=== PATIENT | female | born 1985 | race Caucasian/White ===

== ENCOUNTER 2017-05-04 15:19 | Emergency (ER) | payer SELFPAY ==
[~2017-05-04] VITALS: Ht 160 cm; Wt 59.0 kg
[~2017-05-04 15:19] MED LIST: BENT20TA PO; MONOTAB PO; NAPR-576 PO; ZOFR4TAB3 SL
[2017-05-04 15:20] VITALS: BP 178/102; PULSE 82; RESP 18; TEMP 99; O2SAT 100
--- NOTE | 2017-05-04 16:19 | RADRPT ---
EXAM DATE/TIME: 05/04/2017 15:41 [place] COMPARISON: No previous studies available for comparison. INDICATIONS : Chest pain. MEDICAL HISTORY : upper respiratory infection SURGICAL HISTORY : None. ENCOUNTER: Initial ACUITY: 2 days PAIN SCORE: 7/10 LOCATION: Bilateral chest FINDINGS: PA and lateral views of the chest demonstrate the lungs to be symmetrically aerated without evidence of mass, infiltrate or effusion. The cardiomediastinal contours are unremarkable. Osseous structure s are intact. CONCLUSION: No acute cardiopulmonary disease. Howard Ortiz MD on May 04, 2017 at 16:18 Board Certified Radiologist. This report was verified electronically.
[2017-05-04 17:07] LABS: AUTOMATED NEUTROPHIL # 4.4 TH/MM3 (1.8-7.7); BASOPHIL % 0.6 % (0.0-2.0); EOSINOPHIL # 0.1 TH/MM3 (0-0.4); EOSINOPHIL % 1.8 % (0.0-4.0); HEMATOCRIT 36.5 % (35.0-46.0); HEMOGLOBIN 12.3 GM/DL (11.6-15.3); LYMPH % 26.2 % (9.0-44.0); LYMPHOCYTE # 1.8 TH/MM3 (1.0-4.8); MEAN CELL VOLUME 90.1 FL (80.0-100.0); MEAN CORPUSCULAR HEMOGLOBIN 30.4 PG (27.0-34.0); MEAN CORPUSCULAR HGB CONC 33.8 % (32.0-36.0); MEAN PLATELET VOLUME 8.5 FL (7.0-11.0); MONO % 7.5 % (0.0-8.0); MONOCYTE # 0.5 TH/MM3 (0-0.9); NEUT % 63.9 % (16.0-70.0); PLATELET COUNT 303 TH/MM3 (150-450); RED BLOOD COUNT 4.05 MIL/MM3 (4.00-5.30); RED CELL DISTRIBUTION WIDTH 13.4 % (11.6-17.2); WHITE BLOOD COUNT 6.9 TH/MM3 (4.0-11.0)
[2017-05-04 17:21] LABS: BICARBONATE 26.3 MEQ/L (21.0-32.0); BLOOD UREA NITROGEN 10 MG/DL (7-18); CALCIUM 8.6 MG/DL (8.5-10.1); CHLORIDE 105 MEQ/L (98-107); CREATININE 0.76 MG/DL (0.50-1.00); GLOMERULAR FILTRATION RATE 89 ML/MIN (>89); GLUCOSE,RANDOM 92 MG/DL (74-106); MAGNESIUM 2.3 MG/DL (1.5-2.5); SODIUM (NA) 138 MEQ/L (136-145)
[2017-05-04 17:25] LABS: TROPONIN I LESS THAN 0.02 NG/ML (0.02-0.05)
[2017-05-04] MEDS ORDERED: BUTA1CAP PO (18:02)
[2017-05-04] MEDS ORDERED: CYCL10TA PO (18:02)
--- NOTE | 2017-05-04 18:05 | PD ---
HPI Chief Complaint: Respiratory Symptoms Time Seen by Provider: 17:21 Travel History International Travel<30 days: No Contact w/Intl Traveler<30days: No Traveled to known affect area: No History of Present Illness HPI patient has been recovering from uri over the past 3 weeks, most of her symptoms are improved or resolved but she continues to have dry cough and chest wall pain....chest pain is sharp, 5/10, also hurts with touching... patient states that her chest hurts with movement, and with coughing. denies any aggravating factors...denies assoc factors such as fever/abdpain/back pain/rash/ n/v/d/ PFSH Past Medical History Asthma: Yes ( A CHILD) Diminished Hearing: No GERD: Yes Musculoskeletal: Yes (PINS IN RIGHT HIP AND RIGHT KNEE) Reproductive: Yes (PCOS) Immunizations Current: No ?: Not LMP: 1 week ago : 0 Para: 0 Miscarriage: 0 : 0 Past Surgical History Abdominal Surgery: Yes (ING HERNIA X2 CELINA UMBILICL HERNIA) Social History Alcohol Use: Yes (SOCIALLY ) Tobacco Use: No Substance Use: No Allergies-Medications (Allergen,Severity, Reaction): Coded Allergies: tramadol (Unverified Allergy, Severe, 10/27/16) THROAT SWELLS Reported Meds & Prescriptions Reported Meds & Active Scripts Active Bentyl (Dicyclomine HCl) 20 Mg Tab 20 Mg PO QID PRN Naproxen 500 Mg Tab 500 Mg PO BID Zofran ODT (Ondansetron HCl) 4 Mg Tab 4 Mg SL Q6H PRN FOR NAUSEA/VOMITING Reported Mononessa (Norgestimate-Ethinyl Estradiol) Tab 1 Tab PO DAILY Review of Systems General / Constitutional: No: Fever Eyes: No: Visual changes HENT: No: Headaches Cardiovascular: Positive: Chest Pain or Discomfort Respiratory: No: Shortness of Breath Gastrointestinal: No: Abdominal Pain Genitourinary: No: Dysuria Musculoskeletal: No: Pain Skin: No Rash Neurologic: No: Weakness Psychiatric: No: Depression Endocrine: No: Polydipsia Hematologic/Lymphatic: No: Easy Bruising Physical Exam Narrative GENERAL: SKIN: Warm and dry. HEAD: Atraumatic. Normocephalic. EYES: Pupils equal and round. No scleral icterus. No injection or drainage. ENT: No nasal bleeding or discharge. Mucous membranes pink and moist. NECK: Trachea midline. No JVD. CARDIOVASCULAR: Regular rate and rhythm. RESPIRATORY: No accessory muscle use. Clear to auscultation. Breath sounds equal bilaterally. chest pain is fully reproducible with palpation GASTROINTESTINAL: Abdomen soft, non-tender, nondistended. MUSCULOSKELETAL: Extremities without clubbing, cyanosis, or edema. No obvious deformities. NEUROLOGICAL: Awake and alert. No obvious cranial nerve deficits. Motor grossly within normal limits. Five out of 5 muscle strength in the arms and legs. Normal speech. PSYCHIATRIC: Appropriate mood and affect; insight and judgment normal. Data Data Last Documented VS Vital Signs Date Time Temp Pulse Resp B/P (MAP) Pulse Ox O2 Delivery O2 Flow Rate FiO2 05/04/17 15:20 99.0 82 18 178/102 (127) 100 Room Air Orders Orders Electrocardiogram (05/04/17 15:24) Basic Metabolic Panel (Bmp) (05/04/17 15:24) Ckmb (Isoenzyme) Profile (05/04/17 15:24) Complete Blood Count With Diff (05/04/17 15:24) Magnesium (Mg) (05/04/17 15:24) Troponin I (05/04/17 15:24) Chest, Pa & Lat (05/04/17 15:24) CKMB (05/04/17 16:09) CKMB% (05/04/17 16:09) Labs Laboratory Tests Test 05/04/17 16:09 White Blood Count 6.9 TH/MM3 Red Blood Count 4.05 MIL/MM3 Hemoglobin 12.3 GM/DL Hematocrit 36.5 % Mean Corpuscular Volume 90.1 FL Mean Corpuscular Hemoglobin 30.4 PG Mean Corpuscular Hemoglobin Concent 33.8 % Red Cell Distribution Width 13.4 % Platelet Count 303 TH/MM3 Mean Platelet Volume 8.5 FL Neutrophils (%) (Auto) 63.9 % Lymphocytes (%) (Auto) 26.2 % Monocytes (%) (Auto) 7.5 % Eosinophils (%) (Auto) 1.8 % Basophils (%) (Auto) 0.6 % Neutrophils # (Auto) 4.4 TH/MM3 Lymphocytes # (Auto) 1.8 TH/MM3 Monocytes # (Auto) 0.5 TH/MM3 Eosinophils # (Auto) 0.1 TH/MM3 Basophils # (Auto) 0.0 TH/MM3 CBC Comment DIFF FINAL Differential Comment Blood Urea Nitrogen 10 MG/DL Creatinine 0.76 MG/DL Random Glucose 92 MG/DL Calcium Level 8.6 MG/DL Magnesium Level 2.3 MG/DL Sodium Level 138 MEQ/L Potassium Level 3.7 MEQ/L Chloride Level 105 MEQ/L Carbon Dioxide Level 26.3 MEQ/L Anion Gap 7 MEQ/L Estimat Glomerular Filtration Rate 89 ML/MIN Total Creatine Kinase 105 U/L Creatine Kinase MB 0.7 NG/ML Troponin I LESS THAN 0.02 NG/ML MDM Medical Decision Making Medical Screen Exam Complete: Yes Medical Record Reviewed: Yes Interpretation(s) nsr, no stemi pattern, normal intervals Differential Diagnosis pna v ptx v rib fx v chest wall pain Narrative Course no leukocytosis, no anemia, normal electrolytes. normal lipase/troponin, normal electrolytes Diagnosis Primary Impression: Chest wall pain Patient Instructions: Chest Wall Pain (GEN), General Instructions Scripts [id number] (Fioricet) 50-300-40 Mg Cap 1-2 CAP PO Q6H Y for PAIN SCALE 5 TO 7, #15 CAP 0 Refills Prov: Quan Viveros MD 05/04/17 Cyclobenzaprine (Flexeril) 10 Mg Tab 10 MG PO TID for Muscle Spasm, #15 TAB 0 Refills Prov: Quan Viveros MD 05/04/17 Disposition: 01 DISCHARGE HOME Condition: Stable Quan Viveros MD May 04, 2017 18:04
[2017-05-04] MEDS ORDERED: KETOROLAC TROMETHAMINE 60 MG/2 ML (IM) VIAL IM ONE (18:15)
[2017-05-04 19:18] VITALS: BP 131/81; PULSE 78; O2SAT 100
--- NOTE | 2017-05-05 15:40 | EKG ---
Date Performed: 05/04/2017 Time Performed: 16:03:05 PTAGE: 32 years EKG: Sinus rhythm NORMAL ECG PREVIOUS TRACING : 07/03/2011 15.08 DOCTOR: Vince Cosme Interpretating Date/Time 05/05/2017 15:39:12
== END 2017-05-04 19:21 | disposition home or self-care (01) ==
LOC: NEPD 15:19
DX: R07.89 Other chest pain (principal); Z79.899 Other long term (current) drug therapy
CPT/HCPCS: 71046; 80048; 82550; 82552; 83735; 84484; 85025; 93005; 96372; 99285; J1885